=== PATIENT | male | born 1965 | race African-American/Black ===

== ENCOUNTER → 2017-03-31 | Outpatient (CLI) | payer BC ==
[2014-03-16 16:46] VITALS: BP 166/84
[~2017-03-31] MED LIST: IBUP800T19 PO; IOHEXOL 180 MG/ML 10 ML VIAL. ONE; TEST200V3 IM; methylPREDNISolone ACETATE 40 MG/ML VIAL. ONE; methylPREDNISolone ACETATE 80 MG/ML VIAL. ONE
== END | disposition home or self-care (01) ==
LOC: PNCL 10:28
PROVIDERS: ATTEND Anesthesiology
DX: M51.16 Intervertebral disc disorders with radiculopathy, lumbar region (principal)
CPT/HCPCS: 62323; J1030; J1040